=== PATIENT | female | born 1960 | race Caucasian/White ===

== ENCOUNTER 2022-04-14 19:32 | Emergency (ER) | payer BC ==
[2022-04-14 20:22] LABS: HEMOGLOBIN 15.6 gm/dl (12.3-15.3); WHITE BLOOD COUNT 8.1 K/UL (4.5-11.0)
[2022-04-14 20:52] LABS: BUN/CREATININE RATIO 24 (0-10)
== END 2022-04-14 22:48 | disposition home or self-care (01) ==
LOC: ER1 19:32
PROVIDERS: Family Medicine
DX: I48.91 Unspecified atrial fibrillation (principal); I48.92 Unspecified atrial flutter; E11.9 Type 2 diabetes mellitus without complications; Z79.01 Long term (current) use of anticoagulants
CPT/HCPCS: 80053; 82550; 82553; 84439; 84443; 84484; 85025; 93005; 99284